=== PATIENT | female | born 1990 | race American Indian/Alaskan Native ===

== ENCOUNTER 2021-09-21 12:34 | Emergency (ER) | payer OTHER ==
[2021-09-21 14:12] VITALS: BP 146/111
--- NOTE | 2021-09-21 14:25 | Emergency Department Report ---
ED ENT HPI - General Chief complaint: Earache Stated complaint: RT EAR BLEED Time Seen by Provider: 09/21/21 14:16 Source: patient Mode of arrival: Ambulatory Limitations: No Limitations - History of Present Illness Initial comments: 30-year-old black female presents to the emergency department for evaluation of right ear pain. She states that she was scratching her ear with a rat tail, and accidentally this is a case scraped her ear with a comb. She states that she had blood from her ear and has been having pain to the area since then. She denies any drainage from ear. She denies fever. MD complaint: ear pain -: Sudden Location: R ear Severity: severe Severity scale (0 -10): 10 Quality: aching Consistency: constant Context- Ear: direct trauma Associated Symptoms: denies: fever, cough, gum swelling, toothache, pain with swallowing, sore throat, tinnitus, hearing loss, discharge from ear, rhinorrhea - Related Data Previous Rx's Medication Instructions Recorded Last Taken Type Ketorolac Tromethamine [Ketorolac 5 ml RTEAR BID #1 bottle 09/21/21 Unknown Rx Tromethamine 0.4% opth soln] Neomy/Polymyx B/Hc Opth Susp 1 drop RTEAR Q6HR #1 bottle 09/21/21 Unknown Rx [Cortisporin (OPTH) Susp] Allergies Allergy/AdvReac Type Severity Reaction Status Date / Time No Known Allergies Allergy Verified 09/21/21 14:13 ED Dental HPI - General Chief complaint: Earache Stated complaint: RT EAR BLEED Time Seen by Provider: 09/21/21 14:16 Source: patient Mode of arrival: Ambulatory Limitations: No Limitations - Related Data Previous Rx's Medication Instructions Recorded Last Taken Type Ketorolac Tromethamine [Ketorolac 5 ml RTEAR BID #1 bottle 09/21/21 Unknown Rx Tromethamine 0.4% opth soln] Neomy/Polymyx B/Hc Opth Susp 1 drop RTEAR Q6HR #1 bottle 09/21/21 Unknown Rx [Cortisporin (OPTH) Susp] Allergies Allergy/AdvReac Type Severity Reaction Status Date / Time No Known Allergies Allergy Verified 09/21/21 14:13 ED Review of Systems ROS: Stated complaint: RT EAR BLEED Other details as noted in HPI Comment: All other systems reviewed and negative Constitutional: denies: fever ENT: ear pain Respiratory: denies: shortness of breath Cardiovascular: denies: chest pain, palpitations Gastrointestinal: denies: abdominal pain, nausea, vomiting Musculoskeletal: denies: back pain Neurological: denies: headache, weakness ED Past Medical Hx - Past Medical History Hx Hypertension: Yes - Surgical History Past Surgical History?: No - Medications Home Medications: Home Medications Medication Instructions Recorded Confirmed Last Taken Type Ketorolac Tromethamine [Ketorolac 5 ml RTEAR BID #1 bottle 09/21/21 Unknown Rx Tromethamine 0.4% opth soln] Neomy/Polymyx B/Hc Opth Susp 1 drop RTEAR Q6HR #1 bottle 09/21/21 Unknown Rx [Cortisporin (OPTH) Susp] ED Physical Exam - General Limitations: No Limitations General appearance: alert, in no apparent distress - Head Head exam: Present: atraumatic, normocephalic - Eye Eye exam: Present: normal appearance. Absent: conjunctival injection - Expanded ENT Exam Expanded Ear exam: Present: normal external inspection, other (Right TM noted to be in tact). Absent: auricular trauma TM/Canal exam: Erythema: Right TM, Canal Tenderness: Right TM Mouth exam: Present: normal external inspection - Neck Neck exam: Present: normal inspection - Respiratory Respiratory exam: Absent: respiratory distress - Cardiovascular Cardiovascular Exam: Present: bradycardia - GI/Abdominal GI/Abdominal exam: Absent: distended - Extremities Exam Extremities exam: Present: normal inspection - Back Exam Back exam: Present: normal inspection - Neurological Exam Neurological exam: Present: alert, oriented X3 - Psychiatric Psychiatric exam: Present: normal affect, normal mood - Skin Skin exam: Present: warm, dry, intact, normal color ED Course Vital Signs 09/21/21 14:10 Temperature 97.9 F Pulse Rate 50 L Respiratory 18 Rate Blood Pressure 146/111 [Right] O2 Sat by Pulse 100 Oximetry ED Medical Decision Making - Medical Decision Making 28-year-old black male with a past medical history of PTSD and anxiety presents to the emergency department requesting medication refill. He states that he has not taken medications for anxiety in several weeks, but last night, he witnessed o his friends thigh which caused him to have high anxiety and he has not been able to sleep since then. He denies SI and HI. Right ear canal noted to have several abrasions with minimal blood noted. No drainage noted. TM noted to be intact. Patient will be treated with Cortisporin and Toradol drops for pain and to heal abrasions. He is advised to use drops as directed and follow-up with ENT if no improvement or worsening symptoms. He verbalizes understanding of and agreement with plan of care. Critical care attestation.: If time is entered above; I have spent that time in minutes in the direct care of this critically ill patient, excluding procedure time. ED Disposition Clinical Impression: Abrasion of ear canal Qualifiers: Encounter type: initial encounter Laterality: right Qualified Code(s): S00.411A - Abrasion of right ear, initial encounter Disposition: HOME / SELF CARE / HOMELESS Is pt being admited?: No Does the pt Need Aspirin: No Condition: Stable Instructions: Ear Drops, Adult, [id number], Abrasion, [id number], Earache, Adult Additional Instructions: Use eardrops as prescribed and follow-up with primary care provider or ear nose and throat doctor if no improvement or worsening symptoms. Return to the emergency department as needed. Prescriptions: Neomy/Polymyx B/Hc Opth Susp [Cortisporin (OPTH) Susp] 1 drop RTEAR Q6HR #1 bottle Ketorolac Tromethamine [Ketorolac Tromethamine 0.4% opth soln] 5 ml RTEAR BID #1 bottle Referrals: RAHUL DE LA O MD [Primary Care Provider] - 3-5 Days PAIGE STOREY MD [Staff Physician] - 3-5 Days Time of Disposition: 14:26
== END 2021-09-21 16:00 | disposition home or self-care (01) ==
LOC: ED 12:34
DX: S00.411A Abrasion of right ear, initial encounter (principal); F41.9 Anxiety disorder, unspecified; I10 Essential (primary) hypertension; Z79.899 Other long term (current) drug therapy; X58.XXXA Exposure to other specified factors, initial encounter; Y93.89 Activity, other specified; Y92.89 Other specified places as the place of occurrence of the external cause; Y99.8 Other external cause status
CPT/HCPCS: 99282